=== PATIENT | male | born 1960 | race African-American/Black ===

== ENCOUNTER 2020-04-17 00:08 | Inpatient (IN) | payer OTHER ==
[2020-04-17] VITALS (7 sets, daily range): BP systolic 132–159; BP diastolic 73–88
[~2020-04-17] VITALS: Ht 167.6 cm; Wt 68.5 kg
[2020-04-17 00:43] LABS: BASOPHILS % 0.5 % (0.0-2.0); EOSINOPHILS % 4.4 % (0.0-5.0); HEMATOCRIT. 34.9 % (42.0-52.0); LYMPHOCYTES % 28.9 % (20.0-50.0); MEAN CORPUSCULAR HEMOGLOBIN 29.4 pg (28.0-32.0); MEAN CORPUSCULAR VOLUME 85.8 fL (80.0-94.0); MEAN PLATELET VOLUME 7.8 fl (7.4-10.4); MONOCYTES % 7.2 % (2.0-8.0); PLATELET 363 x1000/uL (130-400); RED BLOOD CELL COUNT 4.07 mill/uL (4.7-6.1); RED CELL DISTRIBUTION WIDTH 13.1 % (11.6-14.6)
[2020-04-17 00:48] LABS: CHLORIDE 111 mEq/L (98-107)
[2020-04-17] MEDS ORDERED: HEPARIN 25,000 UNITS PREMIX 500 ML IV PRN (01:00)
[2020-04-17] MEDS ORDERED: METOPROLOL TARTRATE 25MG TABLET PO ONE (01:00)
[2020-04-17] MEDS ORDERED: ATORVASTATIN CALCIUM 40MG TABLET PO STA (01:40)
[2020-04-17] MEDS ORDERED: HEPARIN 25,000 UNITS PREMIX 500 ML IV SCH (01:45)
[2020-04-17 03:15] LABS: INR 1.1; PARTIAL THROMBOPLASTIN TIME 33.9 sec (23.4-31.0); PROTHROMBIN TIME 11.6 sec (9.6-11.0)
[2020-04-17] MEDS ORDERED: PNEUMOCOCCAL 23-VAL P-SAC VAC 0.5 ML IM ONE (05:15)
[2020-04-17] MEDS ORDERED: CLONIDINE 0.2MG TABLET PO PRN (07:45)
[2020-04-17] MEDS ORDERED: HYDROCODONE/ACETAMINOPHEN 5/325MG TABLET PO PRN (07:45)
[2020-04-17] MEDS ORDERED: ACETAMINOPHEN 325MG TABLET PO PRN (07:45)
[2020-04-17] MEDS ORDERED: ENOXAPARIN 40MG/0.4ML SYR SUBCUT SCH (09:00)
[2020-04-17] MEDS ORDERED: LOSARTAN POTASSIUM 50 MG TABLET PO SCH (11:00)
[2020-04-17] MEDS ORDERED: ENOXAPARIN 30MG/0.3ML SYR SUBCUT NR (11:30)
[2020-04-17] MEDS ORDERED: ASPIRIN 81MG TABLET PO SCH (12:00)
[2020-04-17] MEDS ORDERED: NITROGLYCERIN OINT 1GM/INCH UDPKT TD SCH (14:00)
[2020-04-17 15:07] LABS: METHADONE URINE SCREEN NEGATIVE (NEGATIVE); OPIATES URINE SCREEN NEGATIVE (NEGATIVE)
[2020-04-17 15:08] LABS: *AMPHETAMINES SCREEN URINE NEGATIVE (NEGATIVE); *BARBITURATES SCREEN URINE NEGATIVE (NEGATIVE); *BENZODIAZEPINES SCREEN URINE NEGATIVE (NEGATIVE); *COCAINE SCREEN URINE NEGATIVE (NEGATIVE); CANNABINOID URINE SCREEN NEGATIVE (NEGATIVE); PHENCYCLIDINE URINE SCREEN NEGATIVE (NEGATIVE)
[2020-04-17] MEDS ORDERED: ENOXAPARIN 80MG/0.8ML SYR SUBCUT SCH (21:00)
[2020-04-17] MEDS ORDERED: ZOLPIDEM TARTRATE 5MG TABLET PO PRN (21:00)
[2020-04-17] MEDS ORDERED: AMLODIPINE 5MG TABLET PO SCH (21:00)
[2020-04-17] MEDS ORDERED: ATORVASTATIN CALCIUM 40MG TABLET PO SCH (21:00)
[2020-04-20 19:10] LABS: BARBITURATE SCREEN Negative ug/mL (Cutoff:0.1); BENZODIAZEPINE SCREEN Negative ng/mL (Cutoff:20); OPIATES SCREEN Negative ng/mL (Cutoff:5); PHENCYCLIDINE SCREEN Negative ng/mL (Cutoff:8)
== END 2020-04-17 15:41 | disposition short-term general hospital (02) | DRG 190 ==
LOC: ER 00:08 → 3WST 02:01 → EDBEDREQ 02:26 → ENRESERV 03:02
PROVIDERS: ADMIT Internal Medicine; ATTEND Internal Medicine
DX: I21.9 Acute myocardial infarction, unspecified (principal); E78.5 Hyperlipidemia, unspecified; F12.90 Cannabis use, unspecified, uncomplicated; F14.90 Cocaine use, unspecified, uncomplicated; F17.210 Nicotine dependence, cigarettes, uncomplicated; Z20.828 Contact with and (suspected) exposure to other viral communicable diseases; I10 Essential (primary) hypertension; I25.10 Atherosclerotic heart disease of native coronary artery without angina pectoris; Z82.49 Family history of ischemic heart disease and other diseases of the circulatory system; Z91.19 Patient's noncompliance with other medical treatment and regimen
CPT/HCPCS: 36415; 71045; 80053; 80305; 80307; 83880; 84484; 85025; 93005; 99285; J1644; J1650; U0003-CS